=== PATIENT | male | born 1985 | race Two or more races ===

== ENCOUNTER 2021-11-25 22:29 | Emergency (ER) | payer SELFPAY ==
[~2021-11-25] VITALS: Ht 170.2 cm; Wt 93.0 kg
--- NOTE | 2021-11-25 23:00 | NUR ---
Dr. Tristan at bedside for MSE
[2021-11-25] MEDS ORDERED: ONDANSETRON HCL 4 MG TABLET PO ONE (23:15)
[2021-11-25] MEDS ORDERED: ONDANSETRON HCL 4 MG TABLET ONE (23:15)
--- NOTE | 2021-11-25 23:23 | NUR ---
lab at bedside
[2021-11-25] MEDS ORDERED: ACETAMINOPHEN ES 500 MG TABLET ONE (23:35)
[2021-11-25] MEDS ORDERED: ACETAMINOPHEN ES 500 MG TABLET PO ONE (23:45)
[2021-11-26 00:18] LABS: HEMATOCRIT 42.8 % (36.7-47.1); MEAN CORPUSCULAR HEMOGLOBIN 31.5 uug (23.8-33.4); MEAN CORPUSCULAR VOLUME 91.2 fL (73.0-96.2); PLATELET COUNT (AUTO) 253 K/uL (152-348)
[2021-11-26 00:20] LABS: POTASSIUM 3.8 mmol/L (3.5-5.1)
--- NOTE | 2021-11-26 00:47 | NUR ---
Patient discharged to home in stable condition. Written and verbal after care instructions given. Patient verbalizes understanding of instructions. Stressed follow up or return to ER for worsening s/s.
[2021-11-26 00:49] VITALS: BP 130/80
== END 2021-11-26 00:49 | disposition home or self-care (01) ==
LOC: ER 22:29
DX: R55 Syncope and collapse (principal); S00.03XA Contusion of scalp, initial encounter; W18.39XA Other fall on same level, initial encounter; Y92.511 Restaurant or cafe as the place of occurrence of the external cause
CPT/HCPCS: 36415; 85025; 93005; A4663; A9150; Q0162